=== PATIENT | female | born 1955 | race Caucasian/White ===

== ENCOUNTER 2024-10-16 08:05 | Emergency (ER) | payer BC, MEDICARE | END 2024-10-16 11:44 | disposition home or self-care (01) | LOC: JP.ED 08:05 | DX: S92.511A Displaced fracture of proximal phalanx of right lesser toe(s), initial encounter for closed fracture (principal); S93.602A Unspecified sprain of left foot, initial encounter; Z79.899 Other long term (current) drug therapy; Z90.710 Acquired absence of both cervix and uterus; Z87.891 Personal history of nicotine dependence; W18.49XA Other slipping, tripping and stumbling without falling, initial encounter | CPT/HCPCS: 28515; 73610-26-LT; 73610-LT; 73620-26-RT; 73620-RT; 736302650; 73630-50; 99283-25 ==